=== PATIENT | female | born 1995 | race American Indian/Alaskan Native ===

== ENCOUNTER 2017-10-05 15:00 | Outpatient (CLI) | payer OTHER ==
[2017-10-05 15:48] VITALS: BP 93/54
--- NOTE | 2017-10-05 17:20 | Ultrasound Report ---
FINAL REPORT EXAM: US OB BPP WO NON-STRESS HISTORY: WELL BEING TECHNIQUE: Biophysical profile obstetrical ultrasound PRIORS: None. FINDINGS: Clinical Age: 38 W 4 D EDC 07/15/2018 Biophysical profile scoring 2 movement 2 tone 2 breathing 2 fluid 8/8 overall score Cardiac motion: 135 BPM using M-mode doppler Amniotic Fluid Volume: Adequate YURI 7.9 cm IMPRESSION: Single intrauterine viable . Biophysical profile score is. 8/8
--- NOTE | 2017-10-05 18:11 | Ultrasound Report ---
FINAL REPORT PROCEDURE: US OB LIMITED TECHNIQUE: Sonographic evaluation for breathing, movement, tone, and amniotic fluid volume was performed. CPT 96238 HISTORY: WELL BEING COMPARISON: No prior studies are available for comparison. FINDINGS: Amniotic fluid volume: Normal-score 2. At least one vertical pocket > 2 cm or more in vertical axis. breathing: Normal-score 2. movement: Normal-score 2. tone: Normal. Score: 8 of 8. heart rate 135 beats per minute. YURI 7.9. Estimated delivery October 15, 2017 Clinical data age 38 weeks 4 days IMPRESSION: Normal biophysical profile.
== END 2017-10-05 16:38 | disposition home or self-care (01) ==
LOC: TRG 15:00
PROVIDERS: ATTEND Obstetrics & Gynecology
DX: Z34.93 Encounter for supervision of normal pregnancy, unspecified, third trimester (principal); Z3A.38 38 weeks gestation of pregnancy
CPT/HCPCS: 59025; 76815; 76819

== ENCOUNTER 2017-10-12 10:53 | Outpatient (CLI) | payer OTHER ==
[2017-10-12 11:14] VITALS: BP 108/75
--- NOTE | 2017-10-12 16:34 | Ultrasound Report ---
FINAL REPORT PROCEDURE: US OB BPP WO NON-STRESS TECHNIQUE: Sonographic evaluation for breathing, movement, tone, and amniotic fluid volume was performed. CPT 88220 HISTORY: well-being COMPARISON: No prior studies are available for comparison. FINDINGS: Amniotic fluid volume: Normal-score 2. At least one vertical pocket > 2 cm or more in vertical axis. breathing: Normal-score 2. movement: Normal-score 2. tone: Normal. Score: 8 of 8. Single living intrauterine gestation visualized with a heart rate of 132 beats per minute. IMPRESSION: Normal biophysical profile study, .. heart rate 132 beats per minute. Further evaluation was neither requested nor performed.
--- NOTE | 2017-10-12 16:41 | Ultrasound Report ---
FINAL REPORT PROCEDURE: US OB VELOCIMETRY UMBILCAL ART TECHNIQUE: Doppler imaging of the umbilical arteries was performed to evaluate systolic does diastolic ratio. Sampling of the arterial flow is obtained. HISTORY: well-being COMPARISON: No prior studies are available for comparison. FINDINGS: Sampling of the umbilical artery waveform shows a systolic to diastolic ratio varying from 2.8-2.9. The average is 2.9. Diastolic flow is visualized. The values remain below 3.0. resistive index average 0.65 IMPRESSION: Systolic to diastolic ratio appears normal. Good diastolic flow is visualized. Systolic-diastolic ratio remains below 3.0.
--- NOTE | 2017-10-13 05:34 | Ultrasound Report ---
FINAL REPORT EXAM: US OB > = 14 WEEKS FETUS HISTORY: well-being COMPARISONS: 10/05/2017 FINDINGS: Limited transabdominal 3rd trimester ultrasound utilizing grayscale, color Doppler and M-mode technique Single living intrauterine in cephalic with recorded cardiac activity of 136 beats per minute presentation. Estimated gestational age of 36 weeks 1 day with delivery date of 11/08/2017 is based on composite of biometry measurements as below: Biparietal diameter is 9 cm Head circumference is 33.7 cm Abdominal circumference is 30.7 cm Femoral length is 6.7 cm Estimated weight is with 2614 grams, which corresponds to the 9th percentile based on prior established dating. Amniotic fluid index is approximately 7.7 cm, which is stable from prior. Asymmetry of the kidneys is suggested on real-time examination, with 1 kidney possibly extending into or entirely within the pelvis. No cystic replacement of either kidney is identified. The bladder is fluid-filled. Ultrasound interrogation of the umbilical artery is reported separately. IMPRESSION: Single living intrauterine in cephalic presentation estimated weight in the 9th percentile based on prior established dating. Amniotic fluid index is stable from prior, and there fluid in the urinary bladder, however renal asymmetry is suggested on real-time examination. No cystic replacement of either kidney is seen, and findings may be due to ptosis or anatomic variation. Follow-up dedicated renal ultrasound is suggested.
== END 2017-10-12 14:05 | disposition home or self-care (01) ==
LOC: TRG 10:53
PROVIDERS: ATTEND Obstetrics & Gynecology Gynecology
DX: O47.03 False labor before 37 completed weeks of gestation, third trimester (principal); Z3A.36 36 weeks gestation of pregnancy
CPT/HCPCS: 59025; 76805; 76819; 76820

== ENCOUNTER 2017-10-15 06:04 | Inpatient (IN) | payer OTHER ==
[2017-10-15] MEDS ORDERED: STADOL IV PRN (06:41)
[2017-10-15] MEDS ORDERED: LACTATED RINGERS 1,000 ML IV ONE (06:44)
[2017-10-15] MEDS ORDERED: LACTATED RINGERS 1,000 ML IV SCH (07:00)
[2017-10-15 07:33] LABS: Hematocrit 34.3 % (30.3-42.9); Hemoglobin 11.2 gm/dl (10.1-14.3); Mean Corpuscular HGB Conc 33 % (30-34); Mean Corpuscular Hemoglobin 27 pg (28-32); Mean Corpuscular Volume 84 fl (79-97); Platelet Count 190 K/mm3 (140-440); Red Blood Count 4.08 M/mm3 (3.65-5.03); Red Cell Distribution Width 16.1 % (13.2-15.2)
[2017-10-15] MEDS ORDERED: ePHEDrine SULFATE ONE (08:09)
--- NOTE | 2017-10-15 08:13 | Anesthesia Consultation ---
Anesthesia Consult and Med Hx Date of service: 10/15/17 - Airway Anesthetic Teeth Evaluation: Good ROM Head & Neck: Adequate Mental/Hyoid Distance: Adequate Mallampati Class: Class II Intubation Access Assessment: Probably Good - Pre-Operative Health Status ASA Pre-Surgery Classification: ASA2 Proposed Anesthetic Plan: Epidural, Spinal - Pulmonary Hx Smoking: Yes Hx Asthma: No COPD: No Hx Pneumonia: No - Cardiovascular System Hx Hypertension: No - Central Nervous System Hx Seizures: No Hx Psychiatric Problems: No - Endocrine Hx Renal Disease: No Hx End Stage Renal Disease: No Hx Hypothyroidism: No Hx Hyperthyroidism: No - Hematic Hx Anemia: Yes Hx Sickle Cell Disease: No - Other Systems Hx Alcohol Use: Yes (during 1st trimester)
--- NOTE | 2017-10-15 08:59 | History and Physical Report ---
History of Present Illness Date of examination: 10/15/17 Date of admission: 10/15/17 06:55 Chief complaint: Intense Labor Pains History of present illness: Late entry to care at 27 4/7 weeks, course complicated by a UTI (treated with Macrobid), Anemia, and Vitamin D Deficiency. Past History Past Medical History: no pertinent history Past Surgical History: no surgical history [employer] History: chlamydia Family/Genetic History: diabetes (uncle) Social history: no significant social history, single - Obstetrical History Expected Date of Delivery: 10/29/17 Actual Gestation: 38 Week(s) 0 Day(s) : 2 Para: 1 Hx # Term Pregnancies: 1 Number of Living Children: 1 #1 Infant Gender: Female year: 2[age][birth year] Birthweight: 1.588 kg Method of Delivery: Vaginal Gestational age at delivery: 40 Medications and Allergies Allergies Allergy/AdvReac Type Severity Reaction Status Date / Time No Known Allergies Allergy Verified 11/17/13 21:44 Home Medications Medication Instructions Recorded Confirmed Last Taken Type Ferrous Sulfate [Feosol 325 MG tab] 325 mg PO BID #60 tablet 11/21/13 10/05/17 Unknown Rx Vit-Fe Fumar-FA [ 1 each PO QDAY #30 tablet 11/21/13 10/05/17 Unknown Rx Vitamin] Active Meds: Active Medications Butorphanol Tartrate (Stadol) 2 mg IV Q2H PRN PRN Reason: Labor Pain Last Admin: 10/15/17 07:40 Dose: 2 mg Ephedrine Sulfate (Ephedrine Sulfate) 10 mg IV Q2M PRN PRN Reason: Hypotension Lactated Ringer's (Lactated Ringers) 1,000 mls @ 125 mls/hr IV DIRECT TK Last Admin: 10/15/17 08:18 Dose: 200 mls/hr Fentanyl/Bupivacaine/Sodium Chlor (Fentanyl-Bupiv 2 Mcg/Ml-0.125%) 200 mcg in 100 mls @ 12 mls/hr EPIDURAL TITR TK PRN Reason: Protocol Oxytocin/Sodium Chloride (Pitocin/Ns 20 Unit/1000ml Drip) 20 units in 1,000 mls @ 0 mls/hr IV DIRECT TK PRN Reason: As Directed Naloxone HCl (Narcan 2 Mg/2 Ml) 0.2 mg IV Q5M PRN PRN Reason: Respiratory sedation Review of Systems All systems: negative - Vital Signs Vital signs: Vital Signs Temp Pulse Resp BP 98.0 F 76 18 121/84 10/15/17 06:21 10/15/17 06:21 10/15/17 06:21 10/15/17 06:21 Temp Pulse Resp BP Pulse Ox 98.3 F 74 18 139/71 100 10/15/17 08:35 10/15/17 08:55 10/15/17 08:35 10/15/17 08:55 10/15/17 08:55 - Physical Exam Breasts: Positive: normal Cardiovascular: Regular rate Lungs: Positive: Clear to auscultation, Normal air movement Abdomen: Positive: normal appearance, normal bowel sounds Genitourinary (Female): Positive: normal external genitalia, normal perenium Vagina: Positive: normal moisture Uterus: Positive: enlarged - Obstetrical FHR: category 1 Uterine Contraction Monitor Mode: External Cervical Dilatation: 9.5 (Small amount of clear fluid upon AROM at 0850) Cervical Effacement Percentage: 100 station: 0 Uterine Contraction Pattern: Regular Uterine Tone Measurement Phase: Resting Uterine Contraction Intensity: Moderate Results Result Diagrams: 10/15/17 07:15 Abnormal lab results 10/15/17 Range/Units 07:15 MCH 27 L (28-32) pg RDW 16.1 H (13.2-15.2) % All other labs normal. Assessment and Plan A: IUP @ 38 Weeks Active Labor Category I Tracing GBS Negative P: Admit to L&D per Routine Orders AROM
[2017-10-15] MEDS ORDERED: NARCAN 2 MG/2 ML IV PRN (09:00)
[2017-10-15] MEDS ORDERED: ePHEDrine SULFATE IV PRN ×2 (09:00→11:00)
[2017-10-15] MEDS ORDERED: PITOCin/NS 20 UNIT/1000ML DRIP 20 UNITS/1,000 ML BAG IV SCH (09:00)
[2017-10-15] MEDS ORDERED: MINERAL OIL ONE ×2 (09:03→09:04)
--- NOTE | 2017-10-15 09:28 | Procedure Note ---
OB Delivery Note - Delivery Date of Delivery: 10/15/17 (0912) Surgeon: TILA VANEGAS Estimated blood loss: 100cc - Vaginal Delivery presentation: vertex Delivery position: OA Intrapartum events: none Delivery induction: none Delivery augmentation: rupture of membranes Delivery monitor: external FHT, external uterine Route of delivery: Delivery placenta: spontaneous Delivery cord: nuchal cord, 3 umbilical vessels Episiotomy: none Delivery laceration: none Anesthesia: epidural Delivery comments: of a live 6'15 male infant over a intact perineum under epidural anesthesia with Apgars of 8 and 9 at 0912 on 10/15/2017. Nuchal cord x 1 manually reduced with delivery of body. Infant directly to maternal abd/ chest, skin to skin contact. Spontaneous delivery of placenta complete and intact with Arce side presenting at 0917. Fundus is firm and midline located 4 below the U. Lochia is scant. Delayed cord clamping and cutting; cord cut by maternal grandmother. Placenta discarded. - Infant A at 1 minute: 8 at 5 minutes: 9 Infant Gender: Male (6'15)
[2017-10-15] MEDS ORDERED: fentaNYL-BUPIV 2 MCG/ML-0.125% 200 MCG/100 ML BAG EPIDURAL SCH (09:30)
[2017-10-15] MEDS ORDERED: BENADRYL PO PRN (11:00)
[2017-10-15] MEDS ORDERED: PITOCin/NS 30 UNIT/500ML 30 UNITS/500 ML BAG IV SCH (11:00)
[2017-10-15] MEDS ORDERED: SODIUM CHLORIDE FLUSH SYRINGE 10 ML IV PRN (11:00)
[2017-10-15] MEDS ORDERED: XYLOCAINE 2% INFILTRATI ONE (11:30)
[2017-10-15] MEDS: MOTRIN PO SCH (14:00)
[2017-10-15] MEDS: NORCO 5/325 PO PRN (18:17)
[2017-10-15] MEDS ORDERED: TUCKS PAD TP PRN (18:40)
[2017-10-15 21:45] LABS: Hematocrit 32.6 % (30.3-42.9); Hemoglobin 10.4 gm/dl (10.1-14.3)
[2017-10-15] MEDS ORDERED: MINERAL OIL PO PRN (22:00)
[2017-10-15] MEDS ORDERED: DULCOLAX PR PRN (22:00)
[2017-10-16] MEDS: MOTRIN PO SCH ×3 (00:15→18:46)
--- NOTE | 2017-10-16 09:51 | Progress Note ---
Assessment and Plan A: PPD #1, Stable P: Discharge today, see discharge summary. Subjective - Subjective Date of service: 10/16/17 Principal diagnosis: PPD #1 Patient reports: appetite normal, voiding normally, pain well controlled, ambulating normally [place]: doing well, nursing well Objective - Vital Signs Latest vital signs: Vital Signs Temp Pulse Resp BP BP Pulse Ox 10/16/17 00:00 98.4 F 70 18 123/72 10/15/17 16:16 97.7 F 76 18 105/71 100 10/15/17 16:15 97.7 F 73 18 105/71 100 10/15/17 11:54 97.7 F 72 18 113/75 100 10/15/17 10:35 97.9 F 64 18 121/84 100 10/15/17 10:08 65 121/82 10/15/17 10:03 72 126/87 Intake and Output 10/15/17 10/16/17 10/16/17 23:59 07:59 15:59 Intake Total 240 Balance 240 Intake: Oral 240 Other: Total, Intake Amount 240 # Voids Void 1 - Exam Breasts: Present: normal, Cardiovascular: Present: Regular rate Lungs: Present: Clear to auscultation Abdomen: Present: normal appearance, soft Vulva: both: normal Uterus: Present: normal, firm, fundal height below umbilicus Extremities: Present: normal Deep Tendon Reflex Grade: Normal +2
--- NOTE | 2017-10-16 09:55 | Discharge Summary ---
Providers - Providers Date of Admission: 10/15/17 06:55 Date of discharge: 10/16/17 Attending physician: ANTONI LEWIS MD Primary care physician: ANTONI LEWIS MD Hospitalization Reason for admission: active labor Delivery: Episiotomy: none Laceration: none Other procedures: none complications: none Discharge diagnosis: IUP at term delivered Terry baby: male (6#15) Condition at discharge: Good Disposition: DC-01 TO HOME OR SELFCARE Plan - Provider Discharge Summary Activity: routine, no sex for 6 weeks, no heavy lifting 4 weeks, no strenuous exercise Diet: routine Instructions: routine Additional instructions: [] Smoking cessation referral if applicable(refer to patient education folder for contact #) [] Refer to [facility] Call your doctor immediately for: * Fever > 100.5 * Heavy vaginal bleeding ( >1 pad per hour) * Severe persistent headache * Shortness of breath * Reddened, hot, painful area to leg or breast * Drainage or odor from incision. * Keep incision clean and dry at all times and follow doctor's instructions regarding bathing/showering - Follow up plan Follow up: ANTONI LEWIS MD [Primary Care Provider] - 6 Weeks
[2017-10-17] MEDS: NORCO 5/325 PO PRN (12:05)
[2017-10-17] MEDS: MOTRIN PO SCH (12:05)
[2017-10-17 18:32] VITALS: BP 122/88
== END 2017-10-17 17:15 | disposition home or self-care (01) | DRG 775 ==
LOC: TRG 06:04 → LD 06:55 → TRG 06:55 → OB 10:40
PROVIDERS: ADMIT Obstetrics & Gynecology; ATTEND Obstetrics & Gynecology
PROC: 10E0XZZ Delivery of Products of Conception, External Approach (ICD-10-PCS; principal; 2017-10-15)
PROC: 3E0R3BZ Introduction of Anesthetic Agent into Spinal Canal, Percutaneous Approach (ICD-10-PCS; 2017-10-15)
PROC: 00HU33Z Insertion of Infusion Device into Spinal Canal, Percutaneous Approach (ICD-10-PCS; 2017-10-15)
DX: O69.1XX0 Labor and delivery complicated by cord around neck, with compression, not applicable or unspecified (principal); O99.334 Smoking (tobacco) complicating childbirth; O99.02 Anemia complicating childbirth; D64.9 Anemia, unspecified; F17.210 Nicotine dependence, cigarettes, uncomplicated; Z3A.38 38 weeks gestation of pregnancy; Z37.0 Single live birth; O99.314 Alcohol use complicating childbirth; Z72.89 Other problems related to lifestyle
CPT/HCPCS: 36415; 85014; 85018; 85027; 86592; 86850; 86900; 86901; 99211; G0463; J0595; J2590; J7120

== ENCOUNTER 2021-04-24 10:32 | Emergency (ER) | payer OTHER ==
[2021-04-24 10:41] VITALS: BP 135/91
[2021-04-24] MEDS ORDERED: TETRACAINE 0.5% OPHTH SOLN 4ML OU STA (10:51)
[2021-04-24] MEDS ORDERED: FLUORESCEIN 1 MG STRIP OP ONE (10:51)
--- NOTE | 2021-04-24 11:06 | Emergency Department Report ---
ED Eye Problem HPI - General Chief complaint: Eye Problems Stated complaint: PINK EYE Time Seen by Provider: 04/24/21 10:47 Source: patient Mode of arrival: Ambulatory Limitations: No Limitations - History of Present Illness Initial comments: 26-year-old female presents to the ER today with complaints of left eye redness, drainage and soreness. Patient states that her symptoms started mildly 3 days ago but has since progressed. She states that she has had increased tearing, and this morning she noted that her eye was matted shut and crusted. She r eports a gritty sensation to the eye. She states that there is no itching but does feel sore when she touches her lower lid. She denies any pain with eyeball movement or swelling around the eye. She denies any known injury to the eye. She does not wear glasses or contacts. She denies any grinding or welding. She denies any blurry vision. She states that she does not have any underlying eye conditions. MD chief complaint: eye pain, eye redness -: Gradual, days(s) (3) - Related Data Previous Rx's Medication Instructions Recorded Last Taken Type Ferrous Sulfate [Feosol 325 MG tab] 325 mg PO BID #60 tablet 11/21/13 Unknown Rx Vit-Fe Fumar-FA [ 1 each PO QDAY #30 tablet 11/21/13 Unknown Rx Vitamin] Acetaminophen/Codeine [Tylenol 1 tab PO Q6H PRN #12 tab 05/04/20 Unknown Rx /Codeine # 3 tab] Clindamycin [Clindamycin CAP] 300 mg PO Q8HR #60 capsule 05/04/20 Unknown Rx Ibuprofen [Motrin] 800 mg PO Q8HR PRN #30 tablet 05/04/20 Unknown Rx Ondansetron [Zofran Odt] 4 mg PO Q6HR PRN #15 tab.rapdis 05/04/20 Unknown Rx Sulfamethoxazole/Trimethoprim 1 each PO Q12H #20 tablet 05/04/20 Unknown Rx [Bactrim DS TAB] Erythromycin [Erythromycin Ophth 1 applic OP 5XD 7 Days #1 tube 04/24/21 Unknown Rx Oint] Allergies Allergy/AdvReac Type Severity Reaction Status Date / Time No Known Allergies Allergy Verified 04/24/21 10:38 ED Review of Systems ROS: Stated complaint: PINK EYE Other details as noted in HPI Comment: All other systems reviewed and negative Constitutional: denies: chills, fever Eyes: eye pain, eye discharge, other (Eyes soreness and redness). denies: vision change ENT: denies: ear pain, throat pain, dental pain, hearing loss, epistaxis, congestion Respiratory: denies: cough, shortness of breath, SOB with exertion, SOB at rest, wheezing Cardiovascular: denies: chest pain, palpitations, dyspnea on exertion, orthopnea, edema, syncope, paroxysmal nocturnal dyspnea Gastrointestinal: denies: abdominal pain, nausea, vomiting, diarrhea, constipation, hematemesis, hematochezia Genitourinary: denies: urgency, dysuria, frequency, hematuria, discharge, abnormal menses, dyspareunia Musculoskeletal: denies: back pain, joint swelling, arthralgia Skin: denies: rash, lesions, change in color, change in hair/nails, pruritus Neurological: denies: headache, weakness, numbness, paresthesias, confusion, abnormal gait, vertigo Psychiatric: denies: anxiety, depression, auditory hallucinations, visual hallucinations, homicidal thoughts, suicidal thoughts Hematological/Lymphatic: denies: easy bleeding, easy bruising, swollen glands ED Past Medical Hx - Past Medical History Hx Hypertension: No Hx Congestive Heart Failure: No Hx Diabetes: No Hx Deep Vein Thrombosis: No Hx Renal Disease: No Hx Sickle Cell Disease: No Hx Seizures: No Hx Asthma: No Hx COPD: No Hx HIV: No - Surgical History Past Surgical History?: No - Social History Smoking Status: Current Every Day Smoker Substance Use Type: None - Medications Home Medications: Home Medications Medication Instructions Recorded Confirmed Last Taken Type Ferrous Sulfate [Feosol 325 MG tab] 325 mg PO BID #60 tablet 11/21/13 10/15/17 Unknown Rx Vit-Fe Fumar-FA [ 1 each PO QDAY #30 tablet 11/21/13 10/15/17 Unknown Rx Vitamin] Acetaminophen/Codeine [Tylenol 1 tab PO Q6H PRN #12 tab 05/04/20 Unknown Rx /Codeine # 3 tab] Clindamycin [Clindamycin CAP] 300 mg PO Q8HR #60 capsule 05/04/20 Unknown Rx Ibuprofen [Motrin] 800 mg PO Q8HR PRN #30 tablet 05/04/20 Unknown Rx Ondansetron [Zofran Odt] 4 mg PO Q6HR PRN #15 tab.rapdis 05/04/20 Unknown Rx Sulfamethoxazole/Trimethoprim 1 each PO Q12H #20 tablet 05/04/20 Unknown Rx [Bactrim DS TAB] Erythromycin [Erythromycin Ophth 1 applic OP 5XD 7 Days #1 tube 04/24/21 Unknown Rx Oint] ED Physical Exam - General Limitations: No Limitations General appearance: alert, in no apparent distress - Head Head exam: Present: atraumatic, normocephalic, normal inspection - Eye Eye exam: Present: PERRL, EOMI, conjunctival injection (Left eye -mild), other (Positive increased tearing noted from the left eye). Absent: periorbital swelling, periorbital tenderness Pupils: Present: normal accommodation, other (Broussard lamp exam shows no apparent abrasion, dendritic lesions, or ulcerations; ) - Expanded Eye Exam Expanded Pupils: Regular, Round: Bilateral, Reactive: Bilateral Sclera/Conjunctival: Injection: Left Anterior chamber: Normal Inspection: Bilateral Posterior chamber: Deferred: Left Visual acuity (R) = 20/: 50 Visual acuity (L) = 20/: 40 (Both eye 20/40) With correction: No - Neck Neck exam: Present: normal inspection, full ROM - Respiratory Respiratory exam: Absent: respiratory distress - Cardiovascular Cardiovascular Exam: Present: regular rate, normal rhythm, normal heart sounds - Neurological Exam Neurological exam: Present: alert, oriented X3, CN II-XII intact, normal gait - Psychiatric Psychiatric exam: Present: normal affect, normal mood - Skin Skin exam: Present: intact ED Course Vital Signs 04/24/21 10:39 Temperature 98.2 F Pulse Rate 89 Respiratory 18 Rate Blood Pressure 135/91 O2 Sat by Pulse 100 Oximetry Critical care attestation.: If time is entered above; I have spent that time in minutes in the direct care of this critically ill patient, excluding procedure time. ED Disposition Clinical Impression: Conjunctivitis, left eye Disposition: DC-01 TO HOME OR SELFCARE Is pt being admited?: No Does the pt Need Aspirin: No Condition: Stable Instructions: Viral Conjunctivitis, Adult, Bacterial Conjunctivitis, Adult Additional Instructions: Recommend that you use erythromycin eye ointment as prescribed. I recommend that you wash your hands frequently especially after touching your eye. Try not to touch your other eye as this could be contagious. Follow-up with [facility] if not getting better. Return to the ER if your symptoms changes or worsens in any way. Prescriptions: Erythromycin [Erythromycin Ophth Oint] 1 applic OP 5XD 7 Days #1 tube Referrals: ALEXANDR BUTTERFIELD MD [Staff Physician] - 7-10 days Forms: Work/School Release Form(ED) Time of Disposition: 11:09
== END 2021-04-24 11:47 | disposition home or self-care (01) ==
LOC: ED 10:32
DX: H10.9 Unspecified conjunctivitis (principal); F17.200 Nicotine dependence, unspecified, uncomplicated
CPT/HCPCS: 99282; 99283